=== PATIENT | male | born 1945 | race Caucasian/White ===

== ENCOUNTER → 2020-01-10 10:28 | Outpatient (CLI) | payer MEDICARE, OTHER, SELFPAY ==
--- NOTE | ~2020-01-10 | XR_ITS ---
XR lumbar spine 2-3V DATE: 01/10/2020 11:06 INDICATION: Low back pain TECHNIQUE: AP, lateral, coned lateral lumbosacral views COMPARISON: None FINDINGS: Diffuse osteopenia. There is mild to moderate degenerative disc disease of the lumbar spine and moderately severe degener ative disc disease at L5-S1. There is degenerative change at the apophyseal joints, with associated grade 1 anterolisthesis at L4- 5. No fracture or bone destruction is evident. The included lower thoracic and lumbar pedicles are intac t. The sacroiliac joints are normal. IMPRESSION: Multilevel degenerative disc disease Degenerative changes at the apophyseal joints with associated grade 1 anterolisthesis at L4-5 Reviewed, dictated and finalized at location B. IMPRESSION: Multilevel degenerative disc disease Degenerative changes at the apophyseal joints with associated grade 1 anterolis thesis at L4-5
== END ==
PROVIDERS: PCP Family Medicine; Visit Provider Physician Assistant
DX: M54.5 Low back pain (principal); M51.36 Other intervertebral disc degeneration, lumbar region; M47.816 Spondylosis without myelopathy or radiculopathy, lumbar region
CPT/HCPCS: 72100

== ENCOUNTER 2023-03-24 08:53 | Outpatient (CLI) | payer MEDICARE, OTHER, SELFPAY ==
--- NOTE | 2023-03-24 17:17 | WPDPFTINT ---
PFT Procedure Performed PFT Procedure Performed Spirometry with Pre/Post Bronchodilator Plethysmography (Lung Vol) Diffusing Cap (DLCO) Flow Vol Loop PFT Interpretation This is a pulmonary function test with pre and post-bronchodilator spirometry, plethysmography and diffusing capacity. The test was performed and results interpreted in accordance with the 2019 and 2005 ATS/ERS Task Force guidelines respectively using the Global Lung Function Initiative-2012 reference equations. Patient demonstrated good effort and cooperation. Reproducibility criteria were met. The quality of the pre bronchodilator spirometry maneuver was Grade A and post bronchodilator spirometry maneuver was Grade B. Of note, the patient has struggled with effort requirements of the test. Findings: Spirometry: The expiratory flow tracing demonstrates a notch in 4 of 4 pre bronchodilator efforts and 2 of 4 post bronchodilator efforts and the inspiratory flow tracing demonstrates a saw tooth pattern in 2 of 2 pre bronchodilator efforts and 3 of 4 post bronchodilator efforts. The pre bronchodilator FVC is 2.02 L, 57% predicted. The pre bronchodilator FEV1 is 1.53 L, 58% predicted. The pre bronchodilator FEV1: FVC ratio is 76%. The post bronchodilator FVC is 1.72 L, representing a 15% decrease. The post bronchodilator FEV1 is 1.29 L, representing a 16% decrease. The post bronchodilator FEV1: FVC ratio is 75%. Plethysmography: The total lung capacity is 3.85 L, 61% predicted. The functional residual capacity is 2.22 L, 67% predicted. The residual volume is 1.50 L, 64% predicted. Diffusing capacity: The diffusing capacity unadjusted for hemoglobin and carboxyhemoglobin is 20.8, 90% predicted. The diffusing capacity adjusted for alveolar volume is 6.73, 167% predicted. Impression: The notched pattern has been described with coughing or tracheobronchomalacia. The contour the inspiratory flow tracing demonstrates a reproducible oscillating or sawtooth pattern. This has been associated with upper airway obstruction and upper airway collapsibility. Otherwise the spirometry is normal without evidence of an obstructive abnormality. There is a moderately severe restrictive ventilatory abnormality. There is no significant improvement after inhaling a single dose of albuterol. The diffusing capacity unadjusted for hemoglobin and carboxyhemoglobin is normal and is increased when adjusted for alveolar volume. There are no prior studies for comparison
== END 2023-03-24 08:54 | disposition home or self-care (01) ==
LOC: ANHPFT 08:56
PROVIDERS: PCP Family Medicine; Visit Provider Physician Assistant
DX: J44.9 Chronic obstructive pulmonary disease, unspecified (principal)
CPT/HCPCS: 94060; 94726; 94729

== ENCOUNTER 2023-06-06 10:34 | Outpatient (CLI) | payer MEDICARE, OTHER, SELFPAY ==
--- NOTE | ~2023-06-06 | CT_ITS ---
EXAMINATION: CT diagnostic chest wo con DATE: 06/06/2023 10:59 INDICATION: Abnormal pulmonary function tests TECHNIQUE: Computed tomography (CT) of the chest was performed without intravenous contrast. The dose -length product (DLP) was 414.57 mGy-cm. Automated exposure control and iterative reconstruction tech [employer] were employed. COMPARISON: 04/29/2014 FINDINGS: There is mild atelectasis of the lingula, right middle lobe, and lower lobes. The lungs are free of focal airspace opacities. No pleural effusion or pneumothorax. No pathologically enlarged th oracic lymph nodes are identified. The heart size is normal. 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 There is a small sliding hiatal hernia. There is a 3 mm nonobstructing stone of the left kidney. Ther e is mild thoracic spondylosis. IMPRESSION: 1. Mild atelectasis without acute findings. Reviewed, dictated and finalized at location B. [employer] PROFESSOR
== END 2023-06-06 10:35 | disposition home or self-care (01) ==
LOC: ANHIMG 10:38
PROVIDERS: PCP Family Medicine; Visit Provider Physician Assistant
DX: R94.2 Abnormal results of pulmonary function studies (principal); J98.11 Atelectasis
CPT/HCPCS: 71250

== ENCOUNTER 2025-01-24 07:48 | Outpatient (CLI) | payer MEDICARE, OTHER, SELFPAY ==
--- NOTE | ~2025-01-24 | DEXA_ITS ---
Bone Density Report Name: YURIY SUAREZ Age: 79 Sex: Male Ethnicity: White Date of : 1945 Indication: screening for osteoporosis; Referring Provider: BRIT BAORNE Study: Bone densitometry was performed. Exam Date: January 24, 2025 Accession number: [id number] Bone Density: Region BMD T-score Z-score Classification AP Spine(L1-L4) 1.092 0.0 1.1 Normal Femoral Neck (Left) 0.663 -2.0 -0.5 Osteopenia Total Hip (Left) 0.902 -0.9 0.1 Normal Femoral Neck (Right) 0.659 -2.0 -0.5 Osteopenia Total Hip (Right) 0.895 -0.9 0.1 Normal Total Hip Mean 0.899 -0.9 0.1 Normal World Health Organization criteria for BMD impression classify patients as: Normal (T-score at or above -1.0), Osteopenia (T-score between -1.0 and -2.5), or Osteoporosis (T-score at or below -2.5). 10-year Fracture Risk(1): Major Osteoporotic Fracture 8.4% Hip Fracture 3.2% Reported Risk Factors: [place] (), Neck BMD=0.659, BMI=33.7 (1) FRAX(R) Version 3.08. Fracture probability calculated for an untreated patient. Fracture probability may be lower if the patient has received treatment. Clinical Information Provided by Patient: Has the following medical conditions: COPD Patient maximum height was 66 No regular weight bearing exercise Does not regularly consume dairy products Drinks caffeinated beverages Impression: The patient has low bone mass, based on the Left Femoral Neck T-score. The patient has an estimated ten-year risk of hip fracture of 3.2% and an estimated ten-year risk of major fracture of 8.4%, based on the WHO FRAX algorithm. Discussion: BONE DENSITY IS LOW AT ONE OR MORE SKELETAL SITES. THE PATIENT'S BMD AND CLINICAL RISK FACTORS CONTRIBUTE TO THIS PATIENT'S INCREASED RISK OF FRACTURE. This patient's lowest T-score is low at one or more skeletal sites. It meets the World Health Organization's (WHO) criteria for ?low bone mass? (T-score between -1.0 and -2.5). The patient's 10-year risk of hip fracture as calculated by FRAX exceeds the threshold where pharmacological therapy is recommended by the National Osteoporosis Foundation (NOF). However, all treatment decisions require clinical judgment and consideration of individual patient factors, including patient preferences, comorbidities, previous drug use, risk factors not captured in the FRAX model (e.g., frailty, falls, vitamin D deficiency, increased bone turnover, interval significant decline in bone density) and possible under or overestimation of fracture risk by FRAX. The patient should follow a healthful lifestyle (good nutrition with adequate calcium and vitamin D, and appropriate weight-bearing exercise). Follow-Up: Consider repeating this study in 2 years to reassess this patient's status, or sooner if there is some new clinical indication. Reported by: LEANNA on 01/24/2025 8:13:00 AM. Reviewed, dictated and finalized at location A.
== END 2025-01-24 07:49 | disposition home or self-care (01) ==
LOC: MICIMG 07:49
PROVIDERS: PCP Family Medicine; Visit Provider Physician Assistant Medical
DX: M85.88 Other specified disorders of bone density and structure, other site (principal); M27.9 Disease of jaws, unspecified; Z79.890 Hormone replacement therapy; M85.852 Other specified disorders of bone density and structure, left thigh; M85.851 Other specified disorders of bone density and structure, right thigh
CPT/HCPCS: 77080